=== PATIENT | male | born 1950 | race Caucasian/White ===

== ENCOUNTER 2020-05-05 21:35 | Emergency (ER) | payer MEDICARE ==
[~2020-05-05] VITALS: Ht 170.2 cm; Wt 70.8 kg
[2020-05-05 22:32] LABS: Basophils # (auto) 0 10 ^3/uL (0-0.2); Basophils % (auto) 0.4 % (0.0-2.0); Eosinophils # (auto) 0.1 10 ^3/uL (0-0.8); Eosinophils % (auto) 1.2 % (0.0-7.0); Hematocrit 38.4 % (41.0-53.0); Hemoglobin 12.4 g/dL (13.5-17.5); Lymphocytes # (auto) 1.1 10 ^3/uL (0.4-5.4); Mean Corpuscular Hemoglobin 29.9 pg (28.0-32.0); Mean Corpuscular Hgb Conc. 32.4 g/dL (32.0-36.0); Mean Corpuscular Volume 92.2 fL (80.0-100.0); Monocytes # (auto) 0.9 10 ^3/uL (0-1.3); Monocytes % (auto) 10.6 % (0.0-12.0); Neutrophils # (auto) 6.4 10 ^3/uL (1.6-8.6); Neutrophils % (auto) 74.8 % (37.0-80.0); Platelet Count (auto) 295 10^3/uL (140-450); Red Blood Cells 4.16 10^6/uL (4.5-5.90); Red Cell Distribution Width 13.1 % (11.8-14.3); White Blood Cell 8.6 10^3/uL (4.4-10.8)
[2020-05-05 22:49] LABS: Albumin 2.9 g/dL (3.4-5.0); Calcium 8.6 mg/dL (8.5-10.1); Magnesium 2.4 mg/dL (1.6-2.6); Potassium 3.6 mmol/L (3.5-5.1)
[2020-05-05 22:52] LABS: BUN/Creatinine Ratio 14.7; Bilirubin, Total 0.7 mg/dL (0.2-1.0); Total Protein 7.3 g/dL (6.4-8.2)
[2020-05-06] MEDS ORDERED: ONDANSETRON HCL 4 MG/2 ML VIAL IV ONE ×2 (02:00→02:15)
[2020-05-06] MEDS ORDERED: LIDOCAINE 1% (LOCAL ANESTH.) PF 5ml SDV ID ONE ×2 (02:00→02:15)
[2020-05-06] MEDS ORDERED: CLINDAMYCIN 900MG IV 50 ML IV ONE ×2 (02:00→02:15)
[2020-05-06] MEDS ORDERED: MORPHINE SULFATE 4 MG/ML SYR/VIAL IV ONE ×2 (02:00→02:15)
[2020-05-06] MEDS ORDERED: LIDOCAINE 1%HCL (LOCAL ANESTH) 10 ML MDV IJ ONE (02:15)
[2020-05-06 04:00] VITALS: BP 125/64
[2020-05-06] MEDS ORDERED: cefTRIAXone SOD 1,000 MG VL ONE (04:54)
[2020-05-06] MEDS ORDERED: HYDROcodone-ACET 5/325MG TAB PO ONE (05:00)
[2020-05-06] MEDS ORDERED: cefTRIAXone W LIDOCAINE 1 GM IM IM ONE (05:00)
== END 2020-05-06 05:26 | disposition home or self-care (01) ==
LOC: ER 21:40
DX: L03.114 Cellulitis of left upper limb (principal); L02.512 Cutaneous abscess of left hand
CPT/HCPCS: 36415; 73200; 80053; 83735; 85025; 96365; 96372; 96375; 99285; J0696; J2270; J2405; J3490